=== PATIENT | male | born 1940 | race Caucasian/White ===

== ENCOUNTER → 2018-07-03 | Outpatient (CLI) | payer OTHER | END | disposition home or self-care (01) | LOC: SHCH 13:38 | PROVIDERS: ATTEND Internal Medicine Cardiovascular Disease | DX: I87.2 Venous insufficiency (chronic) (peripheral) (principal); I73.9 Peripheral vascular disease, unspecified | CPT/HCPCS: 93925; 93970 ==

== ENCOUNTER → 2018-07-31 | Outpatient (CLI) | payer OTHER | END | disposition home or self-care (01) | LOC: SHCH 11:15 | PROVIDERS: ATTEND Internal Medicine Cardiovascular Disease | DX: I65.23 Occlusion and stenosis of bilateral carotid arteries (principal) | CPT/HCPCS: 93880 ==

== ENCOUNTER → 2018-08-26 | Outpatient (CLI) | payer OTHER ==
[~2018-08-26] VITALS: Ht 188 cm; Wt 114.8 kg
[~2018-08-26] MED LIST: REGADENOSON 0.4 MG/5 ML PF SYG IVP ONE; REGADENOSON 0.4 MG/5 ML PF SYG IVP SCH
== END | disposition home or self-care (01) ==
LOC: SHCH 11:19
PROVIDERS: ATTEND Internal Medicine Cardiovascular Disease
DX: I20.9 Angina pectoris, unspecified (principal); R06.09 Other forms of dyspnea
CPT/HCPCS: 78452; 93017; 96374; A9500 ×2; J2785

== ENCOUNTER 2019-02-19 06:17 | Day surgery (SDC) | payer OTHER ==
[2019-02-17 14:50] LABS: BASOPHILS % (AUTO) 0.5 % (0.0-5.0); EOSINOPHILS % (AUTO) 5.1 % (0.0-8.0); HEMATOCRIT 33.7 % (42-54); LYMPHOCYTES % (AUTO) 22.6 % (21.0-51.0); MEAN CORPUSCULAR VOLUME 84.8 fL (79-99); MONOCYTES % (AUTO) 10.3 % (3.0-13.0); NEUTROPHILS % (AUTO) 61.5 % (40.0-77.0); PLATELET COUNT (AUTO) 170 K/uL (130-400); RED BLOOD CELL COUNT(AUTO) 3.98 MIL/uL (4.50-6.20); RED CELL DISTRIBUTION WIDTH 16.5 % (11.0-15.5); WHITE BLOOD COUNT (AUTO) 4.7 K/uL (4.8-10.8)
[2019-02-17 14:53] LABS: APPEARANCE,URINE Clear (CLEAR); BILIRUBIN,URINE Negative (NEGATIVE); COLOR,URINE Yellow (YELLOW); GLUCOSE, URINE (UA) Negative (NEGATIVE); KETONES,URINE Negative (NEGATIVE); LEUKOCYTE ESTERASE ,URINE Trace (NEGATIVE); NITRATE,URINE Negative (NEGATIVE); OCCULT BLOOD,URINE Negative (NEGATIVE); PROTEIN,URINE POS 2+ mg/dL (NEGATIVE)
[2019-02-17 15:02] LABS: CREATININE 1.8 mg/dL (0.5-1.5); POTASSIUM 4.5 mmol/L (3.5-5.1)
[2019-02-17 15:03] LABS: BACTERIA,URINE Rare /HPF (None Seen); RBC,URINE 0-1 /HPF (0-1); SQUAMOUS EPITHELIAL CELL,UR Rare /HPF (0-2)
[2019-02-17 15:04] LABS: INR 0.95 (0.85-1.15); PARTIAL THROMBOPLASTIN TIME 26.4 SEC (26.3-35.5)
--- NOTE | 2019-02-17 15:20 | NUR ---
PROCEDURE INFORMED ARNAUD KURTZ OF PT STATING DOES NOT HAVE ANYONE TO STAY WITH HIM AFTER PROCEDURE AT HOME. NO ORDERS RECEIVED. WILL EVALUATE ON DAY OF PROCEDURE.
[2019-02-17 15:29] VITALS: BP 156/69
--- NOTE | 2019-02-18 14:06 | NUR ---
LABS ABNORMAL LABS FAXED TO [facility] PER HIS REQUEST, AWAITING FOR FURTHER ORDERS
--- NOTE | 2019-02-18 14:30 | NUR ---
LABS INFORMED ARNAUD KURTZ OF ABNORMAL BUN/CREA/UA. ORDERS RECEIVED TO BOLUS 500ML OF NS OVER 30 MINUTES THEN TO INFUSE 100ML/HR FOR 5 HOURS.
[~2019-02-19] VITALS: Ht 188 cm; Wt 111.0 kg
[2019-02-19] VITALS (8 sets, daily range): BP systolic 140–176; BP diastolic 50–83
[~2019-02-19 06:17] MED LIST changes: +ACET-66 PO; +ALBU8.5H8 IH; +ASPI-555 PO; +ATOR10TA69 PO; +BUDE10.2 IH; +CARV25TA PO; +CHOL100034 PO; +CILO100T PO; +CLOP75TA32 PO; +DICL2100G TP; +FENO54TA6 PO; +FERS325 PO; +FINA5TAB41 PO; +FLUT16H NASAL; +FURO20TA4 PO; +GABA-529 PO; +GLIP10TA9 PO; +KETO5DRO6 OU; +LACHLOT TP; +LORA10CA9 PO; +MULT1CAP32 PO; +PETR113O TP; +RANI150T7 PO; -REGADENOSON 0.4 MG/5 ML PF SYG IVP ONE; -REGADENOSON 0.4 MG/5 ML PF SYG IVP SCH; +TRIAMCINOLONE ACE; +VORA2.082 PO
[2019-02-19] MEDS ORDERED: SODIUM CHLORIDE 0.9% 1000ML 1,000 ML IV SCH ×3 (06:30→14:01)
[2019-02-19] MEDS ORDERED: ACET600C3 PO (07:48)
--- NOTE | 2019-02-19 07:55 | NUR ---
SKIN DRY SCALY SKIN ALL OVER BODY. RIGHT ANKLE WITH OPEN WOUND PATIENT STATES HAS SKIN GRAFT DRY DRESSING TO SITE DRY AND INTACT ,PATIENT FOLLOWS UP WITH [facility]. RIGHT LEG NOTED MORE SWOLLEN THEN LEFT LEG . PEDAL PULSES VIA DOPPLER BILATERALLY Addendum: 02/19/19 at 0801 by LISA WESTBROOK RN Amended: Links added.
[2019-02-19] MEDS ORDERED: LIDOCAINE HCL 2% 20ML ONE (13:04)
[2019-02-19] MEDS ORDERED: HEPARIN SODIUM 1000UNIT/ML 10ML VIAL ONE (13:04)
[2019-02-19] MEDS ORDERED: NITROGLYCERIN 5 MG/ML 10 ML VIAL IV ONE (13:04)
[2019-02-19] MEDS ORDERED: IODIXANOL 320 MG/ML 100 ML VIAL ONE (13:04)
--- NOTE | 2019-02-19 13:15 | NUR ---
PROCEDURE PT TAKEN TO SECURITY RESEARCHER VIA FOR SCHEDULED PROCEDURE .
[2019-02-19] MEDS ORDERED: MIDAZOLAM HCL 1 MG/ML 2ML VIAL ONE (13:40)
[2019-02-19] MEDS ORDERED: FENTANYL CITRATE PF 50 MCG/1 ML 2ML VIAL ONE (13:40)
[2019-02-19] MEDS ORDERED: HYDRALAZINE HCL 20 MG/ML VIAL ONE (13:56)
[2019-02-19] MEDS ORDERED: METOPROLOL TARTRATE 1 MG/ML 5ML VIAL IV PRN (14:15)
[2019-02-19] MEDS ORDERED: GLUCAGON 1MG KIT 1 MG ML IM PRN (14:15)
[2019-02-19] MEDS ORDERED: HYDRALAZINE HCL 20 MG/ML VIAL IV PRN (14:15)
[2019-02-19] MEDS ORDERED: DEXTROSE 50%-WATER 50 ML DISP.SYRIN IV PRN (14:15)
[2019-02-19] MEDS ORDERED: INSULIN HUMULIN R 100 UNIT/ML 3ML SQ SCH (16:30)
--- NOTE | 2019-02-19 18:25 | NUR ---
PT LEFT VIA WHEELCHAIR, PVT CARE WITH A FRIEND. D/C CHARGE INSTRUCTIONS GIVEN TO PATIENT WITH F/U APPT. NO COMPLICATION WITH SITE. NO BLEEDING,NO HEMATOMA AND PULSES PRESENT, UPON D/C.
== END 2019-02-19 18:25 | disposition home or self-care (01) ==
LOC: DAH 06:17
PROVIDERS: ATTEND Internal Medicine Cardiovascular Disease
DX: I65.23 Occlusion and stenosis of bilateral carotid arteries (principal); I73.9 Peripheral vascular disease, unspecified; I87.2 Venous insufficiency (chronic) (peripheral); I11.9 Hypertensive heart disease without heart failure; E78.5 Hyperlipidemia, unspecified; Z72.0 Tobacco use; Z98.890 Other specified postprocedural states
CPT/HCPCS: 36222; 36225; 36415; 71045; 80048; 81001; 82948 ×2; 85025; 85610; 85730; 93005; 96365; A4215; A4216; A4221; A4222; A4223 ×2; A4606; C1760; C1894 ×2; J0360; J1644; J2250; J3010; J3490 ×2; J7030; Q9967; 36223; 99156; 99157

== ENCOUNTER → 2020-01-13 | Outpatient (CLI) | payer OTHER ==
[~2020-01-13] MED LIST changes: +ACET600C3 PO; -ASPI-555 PO; +ASPI-556 PO
== END | disposition home or self-care (01) ==
LOC: SHCH 12:43
PROVIDERS: ATTEND Internal Medicine Cardiovascular Disease
DX: I87.2 Venous insufficiency (chronic) (peripheral) (principal); I73.9 Peripheral vascular disease, unspecified
CPT/HCPCS: 93970

== ENCOUNTER → 2020-01-18 | Outpatient (CLI) | payer OTHER | END | disposition home or self-care (01) | LOC: SHCH 15:31 | PROVIDERS: ATTEND Internal Medicine Cardiovascular Disease | DX: I77.1 Stricture of artery (principal); I70.203 Unspecified atherosclerosis of native arteries of extremities, bilateral legs | CPT/HCPCS: 93925 ==

== ENCOUNTER → 2020-02-22 | Outpatient (CLI) | payer OTHER | END | disposition home or self-care (01) | LOC: SHCH 07:46 | PROVIDERS: ATTEND Internal Medicine Cardiovascular Disease | DX: I87.2 Venous insufficiency (chronic) (peripheral) (principal); Z09 Encounter for follow-up examination after completed treatment for conditions other than malignant neoplasm | CPT/HCPCS: 93971 ==

== ENCOUNTER 2021-07-20 09:28 | Inpatient (IN) | payer OTHER ==
[~2021-07-20] VITALS: Ht 188 cm; Wt 101.4 kg
[2021-07-20 10:21] LABS: BASOPHILS % (AUTO) 0.4 % (0.0-5.0); HEMATOCRIT 30.9 % (42-54); LYMPHOCYTES % (AUTO) 18.8 % (21.0-51.0); MEAN CORPUSCULAR HEMOGLOBIN 27.2 pg (27.0-33.0); MEAN CORPUSCULAR HGB CONC 28.5 g/dL (32.0-36.0); MEAN CORPUSCULAR VOLUME 95.4 fL (79-99); MONOCYTES % (AUTO) 10.4 % (3.0-13.0); NEUTROPHILS % (AUTO) 65.2 % (40.0-77.0); PLATELET COUNT (AUTO) 189 K/uL (130-400); RED BLOOD CELL COUNT(AUTO) 3.24 MIL/uL (4.50-6.20); RED CELL DISTRIBUTION WIDTH 16.2 % (11.0-15.5)
[2021-07-20 10:29] LABS: CREATININE 1.4 mg/dL (0.5-1.5); POTASSIUM 5.7 mmol/L (3.5-5.1)
[2021-07-20 10:34] LABS: ALBUMIN 3.1 g/dL (3.5-5.0); BILIRUBIN,TOTAL 0.5 mg/dL (0.2-1.0)
[2021-07-20 10:40] LABS: B-TYPE NATRIURETIC PEPTIDE 325 pg/mL (0-100)
[2021-07-20] MEDS ORDERED: OLODATEROL IH (11:01)
[2021-07-20] MEDS ORDERED: SUCR1TAB2 PO (11:01)
[2021-07-20] MEDS ORDERED: LACT1CAP90 PO (11:01)
[2021-07-20] MEDS ORDERED: mometasone IH (11:01)
[2021-07-20] MEDS ORDERED: GABA-529 PO (11:01)
[2021-07-20] MEDS ORDERED: TAMS-1 PO (11:01)
[2021-07-20] MEDS ORDERED: TIOTROP IH (11:01)
[2021-07-20] MEDS ORDERED: CARB-305 OP (11:01)
[2021-07-20] MEDS ORDERED: ALBUHFA IH (11:01)
[2021-07-20] MEDS ORDERED: LOSA25TA41 PO (11:01)
[2021-07-20] MEDS ORDERED: FURO20TA4 PO (11:01)
[2021-07-20] MEDS ORDERED: NITR1OIN TD (11:01)
[2021-07-20] MEDS ORDERED: FERR-72 PO (11:01)
[2021-07-20] MEDS ORDERED: DOCU100C33 PO (11:01)
[2021-07-20] MEDS ORDERED: CYAN10007 IJ (11:01)
[2021-07-20] MEDS ORDERED: RABE20TA30 PO (11:01)
[2021-07-20] MEDS ORDERED: GLIP10TA9 PO (11:01)
[2021-07-20] MEDS ORDERED: ATOR10TA69 PO (11:01)
[2021-07-20] MEDS ORDERED: FUROSEMIDE 40MG VIAL IV SCH (11:30)
[2021-07-20] MEDS ORDERED: IPRATROPIUM/ALBUTEROL SULFATE 3 ML SOLUTION IH SCH ×2 (11:30→14:00)
[2021-07-20] MEDS ORDERED: NA ZIRCON CYCLOSIL(LOKELMA 10GM) PO SCH (12:00)
[2021-07-20] MEDS ORDERED: CEFTRIAXONE 1G VIAL IVP SCH (12:30)
[2021-07-20] MEDS ORDERED: ACETAMINOPHEN 500 MG TABLET PO PRN (13:00)
[2021-07-20 13:09] LABS: % IRON SATURATION 15.9 % (30-44)
[2021-07-20 13:15] LABS: HEMOGLOBIN A1C 6.5 % (4.0-6.0)
[2021-07-20] MEDS ORDERED: Ketotifen Fumarate OU PRN (13:30)
[2021-07-20] MEDS ORDERED: CARBOXYMETHYLCELLULOSE SODIUM OP PRN (13:30)
[2021-07-20] MEDS ORDERED: TIOTROP IH PRN (13:30)
[2021-07-20] MEDS ORDERED: DICLOFENAC SODIUM TP PRN (13:30)
[2021-07-20] MEDS ORDERED: OLODATEROL IH PRN (13:30)
[2021-07-20] MEDS ORDERED: PANTOPRAZOLE 40 MG TAB DR PO SCH (13:45)
[2021-07-20] MEDS: IPRATROPIUM 0.5 MG/2.5 ML INH IH SCH ×2 (14:38→19:09)
[2021-07-20] MEDS ORDERED: PHARMACY COMMUNICATION MISC SCH (15:30)
[2021-07-20 16:28] LABS: CREATININE 1.6 mg/dL (0.5-1.5); MAGNESIUM 1.8 mg/dL (1.80-2.40); POTASSIUM 4.6 mmol/L (3.5-5.1)
[2021-07-20] MEDS: FUROSEMIDE 20MG VIAL IV SCH (16:59)
[2021-07-20] MEDS: NITROGLYCERIN 1GM OINT 1 INCH/1GM TD SCH (16:59)
[2021-07-20] MEDS: OSELTAMIVIR PHOSPHATE 75 MG CAP PO SCH (16:59)
[2021-07-20] MEDS: SUCRALFATE 1 GM TABLET PO SCH ×2 (16:59→21:22)
[2021-07-20 17:00] VITALS: BP 176/65
[2021-07-20] MEDS: BUDESONIDE 0.5 MG/2 ML INH IH SCH (19:09)
[2021-07-20 19:36] VITALS: BP 168/71
[2021-07-20] MEDS ORDERED: NON-FORMULARY MEDICATION 1 EACH (Ferrous Sulfate 325 MG) PO SCH (21:00)
[2021-07-20] MEDS ORDERED: AMLODIPINE 5 MG TAB PO ONE (21:15)
[2021-07-20] MEDS: DOCUSATE SODIUM 100 MG CAP PO SCH (21:22)
[2021-07-20] MEDS: DOXYCYCLINE HYCLATE 100 MG TABLET PO SCH (21:22)
[2021-07-20] MEDS: ATORVASTATIN 10 MG TABLET PO SCH (21:22)
[2021-07-20] MEDS: FERROUS SULFATE 325 MG TABLET.DR PO SCH (21:22)
[2021-07-20] MEDS: GABAPENTIN 100 MG CAPSULE PO SCH (21:23)
[2021-07-20] MEDS: FLUTICASONE PROPIONATE 50MCG/SPRAY 16 GM BOTTLE EN SCH (21:23)
[2021-07-20] MEDS ORDERED: DEXTROSE 50%-WATER 50 ML DISP.SYRIN IV PRN (21:30)
[2021-07-20] MEDS ORDERED: GLUCAGON 1MG KIT 1 MG ML IM PRN (21:30)
[2021-07-20] MEDS ORDERED: ALBUTEROL 0.083% 2.5 MG/3 ML INH IH PRN (21:30)
[2021-07-20] MEDS ORDERED: RENAL DOSE IV PRN (21:30)
[2021-07-20 23:08] VITALS: BP 163/63
[2021-07-21 00:10] LABS: ABG BASE EXCESS 1.2 mmol/L (-2.0-3.0); ABG HCO3 26.6 mmol/L (21.0-28.0); ABG OXYGEN SATURATION 96.3 % (95.0-99.0); ABG PCO2 45 mmHg (35-48)
[2021-07-21] MEDS: IPRATROPIUM 0.5 MG/2.5 ML INH IH SCH ×5 (00:16→23:10)
[2021-07-21] MEDS ORDERED: SODIUM CHLORIDE 3% FOR INHALATION 4 ML/AMP VIAL.NEB IH ONE (00:41)
[2021-07-21] MEDS: CEFEPIME HCL 2 GM VIAL IVP SCH ×3 (01:36→22:17)
[2021-07-21] MEDS: FUROSEMIDE 20MG VIAL IV SCH ×2 (01:36→09:56)
[2021-07-21 03:39] VITALS: BP 175/76
[2021-07-21] MEDS: BUDESONIDE 0.5 MG/2 ML INH IH SCH ×2 (06:15→19:18)
[2021-07-21] MEDS: NITROGLYCERIN 1GM OINT 1 INCH/1GM TD SCH ×2 (06:32→16:00)
[2021-07-21] MEDS: INSULIN HUMULIN R 100 UNIT/ML 3ML SQ SCH ×7 (07:30→22:30)
[2021-07-21 08:00] VITALS: BP 150/72
[2021-07-21 08:10] LABS: BASOPHILS % (AUTO) 0.3 % (0.0-5.0); HEMATOCRIT 31.3 % (42-54); LYMPHOCYTES % (AUTO) 13.6 % (21.0-51.0); MEAN CORPUSCULAR HEMOGLOBIN 26.2 pg (27.0-33.0); MEAN CORPUSCULAR HGB CONC 29.1 g/dL (32.0-36.0); MEAN CORPUSCULAR VOLUME 90.2 fL (79-99); NEUTROPHILS % (AUTO) 70.6 % (40.0-77.0); PLATELET COUNT (AUTO) 217 K/uL (130-400); RED BLOOD CELL COUNT(AUTO) 3.47 MIL/uL (4.50-6.20); WHITE BLOOD COUNT (AUTO) 6.2 K/uL (4.8-10.8)
[2021-07-21 08:20] LABS: CREATININE 1.7 mg/dL (0.5-1.5); CRP QUANTITATIVE 4.9 mg/L (0.00-9.0); MAGNESIUM 1.7 mg/dL (1.80-2.40); POTASSIUM 4.8 mmol/L (3.5-5.1)
[2021-07-21] MEDS ORDERED: LACTOBACILLUS ACIDOPHILUS PO SCH (09:00)
[2021-07-21] MEDS: CHOLECALCIFEROL 1000 UNIT PO SCH (09:00)
[2021-07-21] MEDS ORDERED: PREDNISONE 20 MG TABLET PO SCH (09:00)
[2021-07-21] MEDS ORDERED: FENOFIBRATE 54 MG PO SCH (09:00)
[2021-07-21] MEDS ORDERED: CHOLECALCIFEROL 1000 UNIT PO SCH (09:00)
[2021-07-21] MEDS: FENOFIBRATE NANOCRYSTALLIZED 48 MG TAB PO SCH (09:00)
[2021-07-21] MEDS: GABAPENTIN 100 MG CAPSULE PO SCH ×2 (09:55→22:16)
[2021-07-21] MEDS: ASPIRIN 81 MG EC TAB PO SCH (09:55)
[2021-07-21] MEDS: SUCRALFATE 1 GM TABLET PO SCH ×4 (09:56→22:16)
[2021-07-21] MEDS: CLOPIDOGREL 75MG TAB PO SCH (09:56)
[2021-07-21] MEDS: DOCUSATE SODIUM 100 MG CAP PO SCH ×2 (09:56→22:16)
[2021-07-21] MEDS: PANTOPRAZOLE 40 MG TAB DR PO SCH (09:56)
[2021-07-21] MEDS: LACTOBACILLUS RHAMNOSUS GG 1 EACH CAP.SPRINK PO SCH (09:56)
[2021-07-21] MEDS: DOXYCYCLINE HYCLATE 100 MG TABLET PO SCH ×2 (09:57→22:17)
[2021-07-21] MEDS: FERROUS SULFATE 325 MG TABLET.DR PO SCH ×2 (09:57→22:17)
[2021-07-21] MEDS: FLUTICASONE PROPIONATE 50MCG/SPRAY 16 GM BOTTLE EN SCH ×2 (09:58→22:33)
[2021-07-21] MEDS: TAMSULOSIN HCL 0.4 MG CAP.ER.24H PO SCH (10:01)
[2021-07-21] MEDS ORDERED: AMLODIPINE 5 MG TAB PO SCH (10:30)
[2021-07-21 12:00] VITALS: BP 148/68
[2021-07-21] MEDS: OSELTAMIVIR PHOSPHATE 75 MG CAP PO SCH (15:59)
[2021-07-21 16:00] VITALS: BP 151/64
[2021-07-21] MEDS ORDERED: TRAMADOL HCL 50 MG TABLET PO PRN ×2 (16:00)
[2021-07-21] MEDS ORDERED: TRAMADOL HCL 50 MG TABLET ONE (16:04)
[2021-07-21] MEDS ORDERED: MAGNESIUM 2GM PREMIX 50ML 50 ML IV PRN (16:30)
[2021-07-21 20:47] VITALS: BP 150/64
[2021-07-21] MEDS: ATORVASTATIN 10 MG TABLET PO SCH (22:17)
[2021-07-21] MEDS: BALSAM PERU/CASTOR OIL 60 GM TUBE TP SCH (22:31)
[2021-07-21 23:42] VITALS: BP 126/54
[2021-07-22] MEDS: NITROGLYCERIN 1GM OINT 1 INCH/1GM TD SCH (03:20)
[2021-07-22 03:58] VITALS: BP 151/71
[2021-07-22 05:54] LABS: PHOSPHORUS 4.5 mg/dL (2.5-4.9); THYROID STIMULATING HORMONE 1.48 uIU/mL (0.36-3.74)
[2021-07-22] MEDS: BUDESONIDE 0.5 MG/2 ML INH IH SCH (06:11)
[2021-07-22] MEDS: IPRATROPIUM 0.5 MG/2.5 ML INH IH SCH ×2 (06:11→11:10)
[2021-07-22] MEDS: INSULIN HUMULIN R 100 UNIT/ML 3ML SQ SCH ×2 (06:22→12:16)
[2021-07-22] MEDS: SUCRALFATE 1 GM TABLET PO SCH ×2 (06:55→10:28)
[2021-07-22 07:44] VITALS: BP 157/73
[2021-07-22] MEDS: FLUTICASONE PROPIONATE 50MCG/SPRAY 16 GM BOTTLE EN SCH (08:41)
[2021-07-22] MEDS: DOCUSATE SODIUM 100 MG CAP PO SCH (08:41)
[2021-07-22] MEDS: LACTOBACILLUS RHAMNOSUS GG 1 EACH CAP.SPRINK PO SCH (08:41)
[2021-07-22] MEDS: PANTOPRAZOLE 40 MG TAB DR PO SCH (08:42)
[2021-07-22] MEDS: ASPIRIN 81 MG EC TAB PO SCH (08:42)
[2021-07-22] MEDS: DOXYCYCLINE HYCLATE 100 MG TABLET PO SCH (08:42)
[2021-07-22] MEDS: CLOPIDOGREL 75MG TAB PO SCH (08:43)
[2021-07-22] MEDS: GABAPENTIN 100 MG CAPSULE PO SCH (08:43)
[2021-07-22] MEDS: TAMSULOSIN HCL 0.4 MG CAP.ER.24H PO SCH (08:43)
[2021-07-22] MEDS: FERROUS SULFATE 325 MG TABLET.DR PO SCH (08:43)
[2021-07-22] MEDS: CHOLECALCIFEROL 1000 UNIT PO SCH (08:44)
[2021-07-22] MEDS: FENOFIBRATE NANOCRYSTALLIZED 48 MG TAB PO SCH (08:49)
[2021-07-22] MEDS: BALSAM PERU/CASTOR OIL 60 GM TUBE TP SCH (08:50)
[2021-07-22] MEDS ORDERED: NEOMY SULF/BACITRAC ZN/POLY OINT 30GM TUBE TP SCH (09:00)
[2021-07-22] MEDS ORDERED: AMLODIPINE 5 MG TAB PO SCH (09:00)
[2021-07-22] MEDS ORDERED: PREDNISONE 20 MG TABLET PO SCH (09:00)
[2021-07-22] MEDS: CEFEPIME HCL 2 GM VIAL IVP SCH (10:28)
[2021-07-22] MEDS ORDERED: CARV12.511 PO (11:38)
[2021-07-22] MEDS ORDERED: DOXY100T2 PO (11:41)
[2021-07-22] MEDS ORDERED: OSEL75 PO (11:43)
[2021-07-22 12:00] VITALS: BP 180/83
[2021-07-22] MEDS ORDERED: FURO20TA4 PO (12:01)
[2021-07-22] MEDS ORDERED: PRED20TA3 PO (12:01)
== END 2021-07-22 14:32 | disposition home or self-care (01) | DRG 189 ==
LOC: EDH 09:28 → EDHIP 12:18 → 4DH 15:42
PROVIDERS: ADMIT Internal Medicine; ATTEND Internal Medicine
DX: J96.21 Acute and chronic respiratory failure with hypoxia (principal); J10.00 Influenza due to other identified influenza virus with unspecified type of pneumonia; J44.1 Chronic obstructive pulmonary disease with (acute) exacerbation; L97.319 Non-pressure chronic ulcer of right ankle with unspecified severity; I13.0 Hypertensive heart and chronic kidney disease with heart failure and stage 1 through stage 4 chronic kidney disease, or unspecified chronic kidney disease; E78.5 Hyperlipidemia, unspecified; N18.30 Chronic kidney disease, stage 3 unspecified; E11.51 Type 2 diabetes mellitus with diabetic peripheral angiopathy without gangrene; E11.22 Type 2 diabetes mellitus with diabetic chronic kidney disease; I50.9 Heart failure, unspecified; I16.0 Hypertensive urgency; Z20.822 Contact with and (suspected) exposure to COVID-19; E87.5 Hyperkalemia; L97.529 Non-pressure chronic ulcer of other part of left foot with unspecified severity; D64.9 Anemia, unspecified; R54 Age-related physical debility; I25.10 Atherosclerotic heart disease of native coronary artery without angina pectoris; E11.621 Type 2 diabetes mellitus with foot ulcer; E66.01 Morbid (severe) obesity due to excess calories; Z68.28 Body mass index [BMI] 28.0-28.9, adult; Z79.899 Other long term (current) drug therapy; Z82.0 Family history of epilepsy and other diseases of the nervous system; Z82.49 Family history of ischemic heart disease and other diseases of the circulatory system
CPT/HCPCS: 36415; 36600; 71045; 71250; 73610; 80048; 80053; 82270; 82728; 82803; 82948; 83036; 83540; 83550; 83735; 83880; 84100; 84145; 84443; 84484; 85025; 85651; 86140; 87070; 87071; 87077; 87186; 87205; 87635; 87804; 92610; 93005; 93306; 93970; 94640; 97039; 99291; C9803; G0378; J0692; J0696; J1815; J1940

== ENCOUNTER 2022-01-03 16:27 | Inpatient (IN) | payer OTHER ==
[~2022-01-03] VITALS: Ht 188 cm; Wt 105.4 kg
[~2022-01-03 16:27] MED LIST changes: -ACET600C3 PO; -ALBU8.5H8 IH; +ALBUHFA IH; -BUDE10.2 IH; +CARB-305 OP; +CARV12.511 PO; -CARV25TA PO; -CILO100T PO; +CYAN10007 IJ; +DOCU100C33 PO; +DOXY100T2 PO; +FERR-72 PO; -FERS325 PO; -FINA5TAB41 PO; -LACHLOT TP; +LACT1CAP90 PO; -LORA10CA9 PO; +LOSA25TA41 PO; -MULT1CAP32 PO; +NITR1OIN TD; +OLODATEROL IH; +OSEL75 PO; -PETR113O TP; +PRED20TA3 PO; +RABE20TA30 PO; -RANI150T7 PO; +SUCR1TAB2 PO; +TAMS-1 PO; +TIOTROP IH; -TRIAMCINOLONE ACE; +mometasone IH
[2022-01-03] MEDS: VANCOMYCIN 1G VIAL IVPB ONE ×2 (17:30→20:16)
[2022-01-03] MEDS ORDERED: ACETAMINOPHEN 500 MG TABLET PO ONE (17:30)
[2022-01-03] MEDS ORDERED: ZOSYN 3.375GM +NS 50ML IV SCH (17:30)
[2022-01-03 17:51] LABS: BASOPHILS % (AUTO) 0.2 % (0.0-5.0); EOSINOPHILS % (AUTO) 3.2 % (0.0-8.0); HEMATOCRIT 31.2 % (42-54); LYMPHOCYTES % (AUTO) 16.3 % (21.0-51.0); MEAN CORPUSCULAR HEMOGLOBIN 26.5 pg (27.0-33.0); MEAN CORPUSCULAR HGB CONC 30.4 g/dL (32.0-36.0); MEAN CORPUSCULAR VOLUME 87.2 fL (79-99); MONOCYTES % (AUTO) 12.4 % (3.0-13.0); NEUTROPHILS % (AUTO) 67.7 % (40.0-77.0); PLATELET COUNT (AUTO) 200 K/uL (130-400); RED BLOOD CELL COUNT(AUTO) 3.58 MIL/uL (4.50-6.20); RED CELL DISTRIBUTION WIDTH 15.4 % (11.0-15.5); WHITE BLOOD COUNT (AUTO) 6.2 K/uL (4.8-10.8)
[2022-01-03 18:04] LABS: CREATININE 1.5 mg/dL (0.5-1.5); POTASSIUM 4.9 mmol/L (3.5-5.1)
[2022-01-03 18:14] LABS: ALBUMIN 3.2 g/dL (3.5-5.0); CRP QUANTITATIVE 50.6 mg/L (0.00-9.0); TOTAL PROTEIN, SERUM 7.1 g/dL (6.0-8.3)
[2022-01-03] MEDS ORDERED: CLONIDINE HCL 0.1 MG TABLET PO ONE (19:00)
[2022-01-03] MEDS ORDERED: ACETAMINOPHEN 325 MG TAB PO PRN ×2 (19:00)
[2022-01-03] MEDS ORDERED: LACTULOSE 20 GM/30 ML UDCUP PO PRN (19:00)
[2022-01-03] MEDS ORDERED: DIPHENHYDRAMINE HCL 25 MG CAPSULE PO PRN (19:00)
[2022-01-03] MEDS ORDERED: VANCOMYCIN PROTOCOL PER PHARMACY IV PRN ×2 (19:00→19:30)
[2022-01-03] MEDS ORDERED: HYDRALAZINE 20MG/ML VIAL IV PRN (19:00)
[2022-01-03] MEDS ORDERED: ONDANSETRON 4MG INJ IV PRN (19:00)
[2022-01-03] MEDS ORDERED: MAG/ALUM/SIMETH 30 ML UDCUP PO PRN (19:00)
[2022-01-03 19:35] LABS: B-TYPE NATRIURETIC PEPTIDE 512 pg/mL (0-100)
[2022-01-03] MEDS ORDERED: VANCOMYCIN 1.5 GM/250 ML BAG 250 ML IV ONE (20:00)
[2022-01-03 20:10] LABS: ERYTHROCYTE SEDIMENTATION RATE 62 MM/HR (0-20)
[2022-01-03] MEDS: FAMOTIDINE 20MG TAB PO SCH (20:15)
[2022-01-03] MEDS: INSULIN HUMULIN R 100 UNIT/ML 3ML SQ SCH (20:15)
[2022-01-03] MEDS ORDERED: GABAPENTIN 100 MG CAPSULE ONE (21:05)
[2022-01-03] MEDS ORDERED: MORPHINE 2 MG SYG ONE (21:06)
[2022-01-03 21:30] VITALS: BP 177/92
[2022-01-03] MEDS ORDERED: GABAPENTIN 100 MG CAPSULE PO SCH (21:30)
[2022-01-03] MEDS ORDERED: MORPHINE 2 MG SYG IVP ONE (21:30)
[2022-01-03] MEDS ORDERED: ALBUTEROL 0.083% 2.5 MG/3 ML INH IH PRN (22:00)
[2022-01-03] MEDS ORDERED: FUROSEMIDE 20MG VIAL IV SCH (22:00)
[2022-01-03] MEDS: ACETAMINOPHEN WITH CODEINE 1 TAB TAB PO PRN (22:55)
[2022-01-04] MEDS: MORPHINE 4 MG SYG IV PRN ×2 (00:27→13:15)
[2022-01-04 00:49] VITALS: BP 167/95
[2022-01-04] MEDS ORDERED: ZOSYN 3.375GM+NS 50ML 50 ML IV SCH (01:00)
[2022-01-04 04:52] VITALS: BP 188/99
[2022-01-04 04:59] LABS: HEMATOCRIT 32.2 % (42-54); MEAN CORPUSCULAR HEMOGLOBIN 26.6 pg (27.0-33.0); MEAN CORPUSCULAR HGB CONC 30.1 g/dL (32.0-36.0); MEAN CORPUSCULAR VOLUME 88.2 fL (79-99); RED BLOOD CELL COUNT(AUTO) 3.65 MIL/uL (4.50-6.20); RED CELL DISTRIBUTION WIDTH 15.3 % (11.0-15.5); WHITE BLOOD COUNT (AUTO) 5.9 K/uL (4.8-10.8)
[2022-01-04 05:42] LABS: CREATININE 1.6 mg/dL (0.5-1.5); POTASSIUM 4.5 mmol/L (3.5-5.1)
[2022-01-04] MEDS: INSULIN HUMULIN R 100 UNIT/ML 3ML SQ SCH ×4 (06:58→21:26)
[2022-01-04 08:00] VITALS: BP 196/111
[2022-01-04] MEDS ORDERED: GABAPENTIN 100 MG CAPSULE PO SCH (09:00)
[2022-01-04] MEDS: GABAPENTIN 100 MG CAPSULE PO SCH ×3 (09:17→21:23)
[2022-01-04] MEDS: ACETAMINOPHEN WITH CODEINE 1 TAB TAB PO PRN (09:17)
[2022-01-04] MEDS: FAMOTIDINE 20MG TAB PO SCH ×2 (09:18→21:23)
[2022-01-04] MEDS: CARVEDILOL 12.5 MG TABLET PO SCH ×2 (09:18→21:24)
[2022-01-04] MEDS: ASPIRIN 81 MG EC TAB PO SCH (09:18)
[2022-01-04] MEDS: ENOXAPARIN SODIUM 40 MG/0.4 ML SYRINGE SQ SCH (09:19)
[2022-01-04] MEDS: FUROSEMIDE 20MG VIAL IV SCH ×2 (09:20→19:05)
[2022-01-04 12:00] VITALS: BP 160/63
[2022-01-04] MEDS: VANCOMYCIN 1.25 GM/250 ML BAG 250 ML IV SCH (12:57)
[2022-01-04] MEDS: ZOSYN 3.375GM+NS 50ML 50 ML IV SCH ×2 (15:48→22:32)
[2022-01-04 16:00] VITALS: BP 145/70
[2022-01-04 20:21] VITALS: BP 137/85
[2022-01-04] MEDS: IODOSORB GEL 40GM TP SCH (22:33)
[2022-01-05 00:16] VITALS: BP 168/81
[2022-01-05] MEDS: ACETAMINOPHEN WITH CODEINE 1 TAB TAB PO PRN ×3 (00:46→18:16)
[2022-01-05 04:37] VITALS: BP 145/71
[2022-01-05 04:56] LABS: HEMATOCRIT 28.4 % (42-54); MEAN CORPUSCULAR HEMOGLOBIN 26.6 pg (27.0-33.0); MEAN CORPUSCULAR HGB CONC 30.6 g/dL (32.0-36.0); MEAN CORPUSCULAR VOLUME 86.9 fL (79-99); RED BLOOD CELL COUNT(AUTO) 3.27 MIL/uL (4.50-6.20); RED CELL DISTRIBUTION WIDTH 15.3 % (11.0-15.5); WHITE BLOOD COUNT (AUTO) 6.3 K/uL (4.8-10.8)
[2022-01-05 05:04] LABS: CREATININE 1.9 mg/dL (0.5-1.5); POTASSIUM 4.8 mmol/L (3.5-5.1)
[2022-01-05] MEDS: ZOSYN 3.375GM+NS 50ML 50 ML IV SCH ×3 (06:37→21:46)
[2022-01-05] MEDS: FUROSEMIDE 20MG VIAL IV SCH ×2 (06:38→17:16)
[2022-01-05] MEDS: INSULIN HUMULIN R 100 UNIT/ML 3ML SQ SCH ×4 (06:45→21:00)
[2022-01-05 08:00] VITALS: BP 123/51
[2022-01-05] MEDS: ASPIRIN 81 MG EC TAB PO SCH (09:08)
[2022-01-05] MEDS: CARVEDILOL 12.5 MG TABLET PO SCH ×2 (09:09→21:46)
[2022-01-05] MEDS: FAMOTIDINE 20MG TAB PO SCH ×2 (09:09→21:45)
[2022-01-05] MEDS: GABAPENTIN 100 MG CAPSULE PO SCH ×3 (09:09→21:45)
[2022-01-05] MEDS: ENOXAPARIN SODIUM 40 MG/0.4 ML SYRINGE SQ SCH (09:10)
[2022-01-05 12:00] VITALS: BP 116/78
[2022-01-05] MEDS: VANCOMYCIN 1.25 GM/250 ML BAG 250 ML IV SCH (12:15)
[2022-01-05] MEDS: MORPHINE 4 MG SYG IV PRN (14:26)
[2022-01-05 16:00] VITALS: BP 137/108
[2022-01-05 20:00] VITALS: BP_SYST 115; BP_SYST 123; BP_DIAS 49; BP_DIAS 62
[2022-01-05] MEDS: IODOSORB GEL 40GM TP SCH (22:00)
[2022-01-06] VITALS: BP 136/59
[2022-01-06 04:00] VITALS: BP 113/56
[2022-01-06 05:16] LABS: BASOPHILS % (AUTO) 0.2 % (0.0-5.0); EOSINOPHILS % (AUTO) 4.3 % (0.0-8.0); HEMATOCRIT 29.3 % (42-54); LYMPHOCYTES % (AUTO) 18.2 % (21.0-51.0); MEAN CORPUSCULAR HEMOGLOBIN 26.7 pg (27.0-33.0); MEAN CORPUSCULAR VOLUME 88.8 fL (79-99); MONOCYTES % (AUTO) 14.3 % (3.0-13.0); NEUTROPHILS % (AUTO) 62.8 % (40.0-77.0); PLATELET COUNT (AUTO) 170 K/uL (130-400); RED CELL DISTRIBUTION WIDTH 15.2 % (11.0-15.5); WHITE BLOOD COUNT (AUTO) 4.5 K/uL (4.8-10.8)
[2022-01-06 05:36] LABS: CREATININE 2.1 mg/dL (0.5-1.5); MAGNESIUM 1.7 mg/dL (1.80-2.40); POTASSIUM 4.5 mmol/L (3.5-5.1)
[2022-01-06] MEDS: FUROSEMIDE 20MG VIAL IV SCH (05:45)
[2022-01-06] MEDS: ZOSYN 3.375GM+NS 50ML 50 ML IV SCH (05:46)
[2022-01-06] MEDS: INSULIN HUMULIN R 100 UNIT/ML 3ML SQ SCH ×4 (05:50→21:00)
[2022-01-06 08:00] VITALS: BP 153/54
[2022-01-06] MEDS: VANCOMYCIN 1.25 GM/250 ML BAG 250 ML IV SCH (09:06)
[2022-01-06] MEDS: MEROPENEM 1 GM VIAL IVP SCH ×2 (09:06→20:54)
[2022-01-06] MEDS: FAMOTIDINE 20MG TAB PO SCH ×2 (09:07→20:54)
[2022-01-06] MEDS: ASPIRIN 81 MG EC TAB PO SCH (09:07)
[2022-01-06] MEDS: ENOXAPARIN SODIUM 40 MG/0.4 ML SYRINGE SQ SCH (09:07)
[2022-01-06] MEDS: GABAPENTIN 100 MG CAPSULE PO SCH ×3 (09:07→20:55)
[2022-01-06] MEDS: CARVEDILOL 12.5 MG TABLET PO SCH ×2 (09:08→21:01)
[2022-01-06 11:56] VITALS: BP 135/55
[2022-01-06 16:00] VITALS: BP 127/70
[2022-01-06] MEDS: ACETAMINOPHEN WITH CODEINE 1 TAB TAB PO PRN (19:14)
[2022-01-06 20:00] VITALS: BP 155/83
[2022-01-06] MEDS: IODOSORB GEL 40GM TP SCH (22:00)
[2022-01-06] MEDS: MORPHINE 4 MG SYG IV PRN (23:34)
[2022-01-07] VITALS: BP 158/63
[2022-01-07] MEDS ORDERED: CARV25TA PO (01:16)
[2022-01-07] MEDS ORDERED: [UNRECOGNIZED DRUG - OTHER] PO (01:16)
[2022-01-07] MEDS ORDERED: RABE20TA30 PO (01:16)
[2022-01-07 06:29] VITALS: BP 138/57
[2022-01-07] MEDS: INSULIN HUMULIN R 100 UNIT/ML 3ML SQ SCH ×4 (07:30→21:00)
[2022-01-07 08:00] VITALS: BP 126/46
[2022-01-07 08:40] LABS: BASOPHILS % (AUTO) 0.2 % (0.0-5.0); EOSINOPHILS % (AUTO) 4.7 % (0.0-8.0); HEMATOCRIT 29.6 % (42-54); LYMPHOCYTES % (AUTO) 12.2 % (21.0-51.0); MEAN CORPUSCULAR HEMOGLOBIN 26.7 pg (27.0-33.0); MEAN CORPUSCULAR HGB CONC 30.4 g/dL (32.0-36.0); MEAN CORPUSCULAR VOLUME 87.8 fL (79-99); MONOCYTES % (AUTO) 14.8 % (3.0-13.0); NEUTROPHILS % (AUTO) 67.7 % (40.0-77.0); PLATELET COUNT (AUTO) 170 K/uL (130-400); RED BLOOD CELL COUNT(AUTO) 3.37 MIL/uL (4.50-6.20); WHITE BLOOD COUNT (AUTO) 5.6 K/uL (4.8-10.8)
[2022-01-07 09:03] LABS: ALBUMIN 2.5 g/dL (3.5-5.0); CREATININE 2.1 mg/dL (0.5-1.5); MAGNESIUM 2.1 mg/dL (1.80-2.40); POTASSIUM 5.1 mmol/L (3.5-5.1); TOTAL PROTEIN, SERUM 6.4 g/dL (6.0-8.3)
[2022-01-07] MEDS: MEROPENEM 1 GM VIAL IVP SCH ×2 (09:30→21:10)
[2022-01-07] MEDS: ENOXAPARIN SODIUM 40 MG/0.4 ML SYRINGE SQ SCH (09:31)
[2022-01-07] MEDS: CARVEDILOL 12.5 MG TABLET PO SCH ×2 (09:31→21:09)
[2022-01-07] MEDS: FAMOTIDINE 20MG TAB PO SCH (09:31)
[2022-01-07] MEDS: ASPIRIN 81 MG EC TAB PO SCH (09:31)
[2022-01-07] MEDS: GABAPENTIN 100 MG CAPSULE PO SCH ×3 (09:32→21:08)
[2022-01-07] MEDS ORDERED: NA ZIRCON CYCLOSIL(LOKELMA 10GM) PO ONE (10:30)
[2022-01-07] MEDS: VANCOMYCIN 1.25 GM/250 ML BAG 250 ML IV SCH (10:49)
[2022-01-07] MEDS: SUCRALFATE 1 GM TABLET PO SCH ×3 (11:15→21:09)
[2022-01-07] MEDS: LACTOBACILLUS RHAMNOSUS GG 1 EACH CAP.SPRINK PO SCH (11:15)
[2022-01-07] MEDS: PANTOPRAZOLE 40 MG TAB DR PO SCH (11:15)
[2022-01-07] MEDS: ACETAMINOPHEN WITH CODEINE 1 TAB TAB PO PRN (11:44)
[2022-01-07 12:00] VITALS: BP 152/49
[2022-01-07 16:00] VITALS: BP 141/57
[2022-01-07 20:51] VITALS: BP 138/58
[2022-01-07] MEDS: FERROUS SULFATE 325 MG TABLET.DR PO SCH (21:00)
[2022-01-07] MEDS: ***HM***(Fenofibrate 54 MG) PO SCH (21:00)
[2022-01-07] MEDS: ATORVASTATIN 10 MG TABLET PO SCH (21:08)
[2022-01-07] MEDS: DOCUSATE SODIUM 100 MG CAP PO SCH (21:09)
[2022-01-07] MEDS: MORPHINE 4 MG SYG IV PRN (21:12)
[2022-01-07] MEDS: IODOSORB GEL 40GM TP SCH (21:21)
[2022-01-08 00:19] VITALS: BP 140/87
[2022-01-08 04:58] VITALS: BP 143/53
[2022-01-08] MEDS: INSULIN HUMULIN R 100 UNIT/ML 3ML SQ SCH ×3 (06:05→21:00)
[2022-01-08 06:11] LABS: BASOPHILS % (AUTO) 0.4 % (0.0-5.0); EOSINOPHILS % (AUTO) 6.8 % (0.0-8.0); LYMPHOCYTES % (AUTO) 15.8 % (21.0-51.0); MEAN CORPUSCULAR HEMOGLOBIN 26.2 pg (27.0-33.0); MEAN CORPUSCULAR HGB CONC 29.4 g/dL (32.0-36.0); MEAN CORPUSCULAR VOLUME 89.3 fL (79-99); MONOCYTES % (AUTO) 15.2 % (3.0-13.0); NEUTROPHILS % (AUTO) 61.2 % (40.0-77.0); PLATELET COUNT (AUTO) 212 K/uL (130-400); RED BLOOD CELL COUNT(AUTO) 3.47 MIL/uL (4.50-6.20); RED CELL DISTRIBUTION WIDTH 15.1 % (11.0-15.5); WHITE BLOOD COUNT (AUTO) 5.3 K/uL (4.8-10.8)
[2022-01-08 06:24] LABS: ALBUMIN 2.7 g/dL (3.5-5.0); CREATININE 1.9 mg/dL (0.5-1.5); MAGNESIUM 2.1 mg/dL (1.80-2.40); POTASSIUM 4.4 mmol/L (3.5-5.1); TOTAL PROTEIN, SERUM 6.9 g/dL (6.0-8.3)
[2022-01-08 07:05] VITALS: BP 152/89
[2022-01-08] MEDS: LACTOBACILLUS RHAMNOSUS GG 1 EACH CAP.SPRINK PO SCH (08:04)
[2022-01-08] MEDS: FERROUS SULFATE 325 MG TABLET.DR PO SCH ×2 (08:05→17:34)
[2022-01-08] MEDS: CARVEDILOL 12.5 MG TABLET PO SCH ×2 (08:05→21:00)
[2022-01-08] MEDS: PANTOPRAZOLE 40 MG TAB DR PO SCH (08:05)
[2022-01-08] MEDS: ASPIRIN 81 MG EC TAB PO SCH (08:05)
[2022-01-08] MEDS: CLOPIDOGREL 75MG TAB PO SCH (08:06)
[2022-01-08] MEDS: DOCUSATE SODIUM 100 MG CAP PO SCH ×2 (08:06→21:46)
[2022-01-08] MEDS: TAMSULOSIN HCL 0.4 MG CAP.ER.24H PO SCH (08:06)
[2022-01-08] MEDS: SUCRALFATE 1 GM TABLET PO SCH ×4 (08:06→21:46)
[2022-01-08] MEDS: ENOXAPARIN SODIUM 40 MG/0.4 ML SYRINGE SQ SCH (08:07)
[2022-01-08] MEDS: GABAPENTIN 100 MG CAPSULE PO SCH ×3 (08:21→21:46)
[2022-01-08] MEDS: MEROPENEM 1 GM VIAL IVP SCH ×2 (08:21→21:56)
[2022-01-08] MEDS: ***HM***(Cholecalciferol (Vitamin D3) (Vitamin D3) 1,000 UNIT) PO SCH (08:32)
[2022-01-08] MEDS: VANCOMYCIN 1G/250ML KIT 250 ML IV SCH (09:32)
[2022-01-08] MEDS: MORPHINE 4 MG SYG IV PRN ×2 (09:33→17:35)
[2022-01-08 12:05] VITALS: BP 129/55
[2022-01-08] MEDS: HYDROCODONE/ACETAMINOPHEN 10/325 MG TAB PO PRN (12:36)
[2022-01-08 16:02] VITALS: BP 131/59
[2022-01-08 20:26] VITALS: BP 136/65
[2022-01-08] MEDS: ***HM***(Fenofibrate 54 MG) PO SCH (21:00)
[2022-01-08] MEDS: ATORVASTATIN 10 MG TABLET PO SCH (21:46)
[2022-01-08] MEDS: ACETAMINOPHEN WITH CODEINE 1 TAB TAB PO PRN (21:47)
[2022-01-08] MEDS: IODOSORB GEL 40GM TP SCH (22:03)
[2022-01-09 00:45] VITALS: BP 141/70
[2022-01-09] MEDS: HYDROCODONE/ACETAMINOPHEN 10/325 MG TAB PO PRN ×3 (03:40→14:22)
[2022-01-09 04:36] VITALS: BP 149/70
[2022-01-09 05:31] LABS: ALBUMIN 2.5 g/dL (3.5-5.0); CREATININE 2.1 mg/dL (0.5-1.5); POTASSIUM 4.3 mmol/L (3.5-5.1)
[2022-01-09 05:35] LABS: HEMATOCRIT 26.6 % (42-54); MEAN CORPUSCULAR HEMOGLOBIN 26.5 pg (27.0-33.0); MEAN CORPUSCULAR HGB CONC 30.1 g/dL (32.0-36.0); MEAN CORPUSCULAR VOLUME 88.1 fL (79-99); RED BLOOD CELL COUNT(AUTO) 3.02 MIL/uL (4.50-6.20); RED CELL DISTRIBUTION WIDTH 15.2 % (11.0-15.5); WHITE BLOOD COUNT (AUTO) 4.7 K/uL (4.8-10.8)
[2022-01-09] MEDS: INSULIN HUMULIN R 100 UNIT/ML 3ML SQ SCH ×3 (06:32→16:30)
[2022-01-09] MEDS: SUCRALFATE 1 GM TABLET PO SCH ×3 (06:52→16:49)
[2022-01-09] MEDS: PANTOPRAZOLE 40 MG TAB DR PO SCH (06:52)
[2022-01-09 08:00] VITALS: BP 150/86
[2022-01-09] MEDS: MEROPENEM 1 GM VIAL IVP SCH (08:10)
[2022-01-09] MEDS: TAMSULOSIN HCL 0.4 MG CAP.ER.24H PO SCH (08:10)
[2022-01-09] MEDS: CARVEDILOL 12.5 MG TABLET PO SCH (08:10)
[2022-01-09] MEDS: CLOPIDOGREL 75MG TAB PO SCH (08:11)
[2022-01-09] MEDS: LACTOBACILLUS RHAMNOSUS GG 1 EACH CAP.SPRINK PO SCH (08:11)
[2022-01-09] MEDS: GABAPENTIN 100 MG CAPSULE PO SCH ×2 (08:11→14:21)
[2022-01-09] MEDS: ASPIRIN 81 MG EC TAB PO SCH (08:11)
[2022-01-09] MEDS: FERROUS SULFATE 325 MG TABLET.DR PO SCH (08:11)
[2022-01-09] MEDS: DOCUSATE SODIUM 100 MG CAP PO SCH (08:11)
[2022-01-09] MEDS: ENOXAPARIN SODIUM 40 MG/0.4 ML SYRINGE SQ SCH (08:13)
[2022-01-09] MEDS: ***HM***(Cholecalciferol (Vitamin D3) (Vitamin D3) 1,000 UNIT) PO SCH (09:00)
[2022-01-09] MEDS ORDERED: 0.9% NACL 250ML 250 ML ONE (09:02)
[2022-01-09] MEDS: VANCOMYCIN 1G/250ML KIT 250 ML IV SCH (09:04)
[2022-01-09 12:00] VITALS: BP 137/60
[2022-01-09 16:00] VITALS: BP 156/57
== END 2022-01-09 17:40 | DRG 299 ==
LOC: EDH 16:27 → EDHIP 18:08 → 3AH 20:46
PROVIDERS: ADMIT Hospitalist; ATTEND Hospitalist
DX: E11.51 Type 2 diabetes mellitus with diabetic peripheral angiopathy without gangrene (principal); E43 Unspecified severe protein-calorie malnutrition; I13.0 Hypertensive heart and chronic kidney disease with heart failure and stage 1 through stage 4 chronic kidney disease, or unspecified chronic kidney disease; L97.919 Non-pressure chronic ulcer of unspecified part of right lower leg with unspecified severity; L03.115 Cellulitis of right lower limb; Z16.24 Resistance to multiple antibiotics; N17.9 Acute kidney failure, unspecified; I16.0 Hypertensive urgency; D64.9 Anemia, unspecified; E11.22 Type 2 diabetes mellitus with diabetic chronic kidney disease; I25.10 Atherosclerotic heart disease of native coronary artery without angina pectoris; I50.9 Heart failure, unspecified; J44.9 Chronic obstructive pulmonary disease, unspecified; K21.9 Gastro-esophageal reflux disease without esophagitis; N18.30 Chronic kidney disease, stage 3 unspecified; E66.9 Obesity, unspecified; E78.00 Pure hypercholesterolemia, unspecified; I83.019 Varicose veins of right lower extremity with ulcer of unspecified site; N40.0 Benign prostatic hyperplasia without lower urinary tract symptoms; Z82.0 Family history of epilepsy and other diseases of the nervous system; Z83.3 Family history of diabetes mellitus; Z87.891 Personal history of nicotine dependence; Z68.29 Body mass index [BMI] 29.0-29.9, adult; E11.621 Type 2 diabetes mellitus with foot ulcer; I83.013 Varicose veins of right lower extremity with ulcer of ankle
CPT/HCPCS: 36415; 71045; 73590; 73610; 73630; 80048; 80053; 80202; 82040; 82948; 83605; 83735; 83880; 84484; 85025; 85027; 85651; 86140; 87040; 87070; 87076; 87077; 87186; 93925; 93970; G0378; J1650; J1815; J1940; J2185; J2270; J2543; J3370; J7050